=== PATIENT | female | born 1990 | race Caucasian/White ===

== ENCOUNTER 2017-02-03 15:36 | Emergency (ER) | payer OTHER ==
[2017-02-03] MEDS ORDERED: Ketorolac 30 MG/ML SDV IVPUSH ONE (16:52)
[2017-02-03] MEDS ORDERED: Sodium Chloride 0.9% 1,000 ML IV ONE (16:52)
[2017-02-03] MEDS ORDERED: Ondansetron 4 MG/2 ML SDV IVPUSH ONE (16:52)
[2017-02-03] MEDS ORDERED: LORazepam 2 MG/ML SDV IVPUSH ONE (17:43)
--- NOTE | 2017-02-03 18:26 | EDM.PDOC ---
ED HPI GENERAL MEDICAL PROBLEM - General Chief Complaint: Headache Stated Complaint: HEADACHE Time Seen by Provider: 02/03/17 16:51 Source of Information: Reports: Patient History Limitations: Reports: No Limitations - History of Present Illness INITIAL COMMENTS - FREE TEXT/NARRATIVE: HISTORY AND PHYSICAL: History of present illness: Patient is a 26-year-old female who presents to the emergency room with complaints of a tension type headache. States this has been going on for 2 days and has not been alleviated with Excedrin Migraine. Reports some muscular tension at the base of the skull and wraps around her head. Reports she has been having headaches every 2-3 weeks. He is normally resolve with Excedrin Migraine and rest. He has mild light and noise sensitivity. No nausea, vomiting , diarrhea, abdominal pain. Any recent head injury or trauma. Denies any change in vision. Last menstrual period was late December, denies any chance of . Review of systems: As per history of present illness and below otherwise all systems reviewed and negative. Past medical history: As per history of present illness and as reviewed below otherwise noncontributory. Surgical history: As per history of present illness and as reviewed below otherwise noncontributory. Social history: No reported history of drug or alcohol abuse. Family history: As per history of present illness and as reviewed below otherwise noncontributory. Physical exam: Gen.: Well-developed and well-nourished 26-year-old female. Appears nontoxic and in no acute distress. Alert and oriented. HEENT: Atraumatic, normocephalic, pupils reactive, negative for conjunctival pallor or scleral icterus, mucous membranes moist, throat clear, neck supple, nontender, trachea midline. Lungs: Clear to auscultation, breath sounds equal bilaterally, chest nontender. Heart: S1S2, regular, negative for clicks, rubs, or JVD. Abdomen: Soft, nondistended, nontender. Negative for masses or hepatosplenomegaly. Negative for costovertebral tenderness. Pelvis: Stable nontender. Genitourinary: Deferred. Rectal: Deferred. Extremities: Atraumatic, negative for cords or calf pain. Neurovascular unremarkable. Neuro: Awake, alert, oriented. Cranial nerves II through XII unremarkable. Cerebellum unremarkable. Motor and sensory unremarkable throughout. Exam nonfocal. Diagnostics: [] Therapeutics: IV fluid, Zofran, Toradol, Ativan Impression: Migraine Plan: 1. Please take the rest of the day to rest. The medication you were given may make you drowsy sitting do not drive for the rest of the evening. 2. Keep a headache diary over the next couple weeks and I would like you to discuss possible maintenance/preventative headache treatment options with your primary care provider as you do state you've been having them every couple weeks. 3. Return to the ED as needed and as discussed. Definitive disposition and diagnosis as appropriate pending reevaluation and review of above. headache Pain Score (Numeric/FACES): 10 - Related Data Allergies Allergy/AdvReac Type Severity Reaction Status Date / Time No Known Allergies Allergy Verified 02/03/17 16:06 Home Meds: Home Meds Control 02/03/17 [History] Past Medical History Neurological History: Reports: Migraines - Infectious Disease History Infectious Disease History: Reports: Chicken Pox - Past Surgical History GI Surgical History: Reports: Appendectomy Social & Family History - Family History Family Medical History: Noncontributory - Tobacco Use Smoking Status *Q: Never Smoker - Recreational Drug Use Recreational Drug Use: No ED ROS GENERAL - Review of Systems Review Of Systems: ROS reveals no pertinent complaints other than HPI. - Physical Exam Exam: See Below (See dictation) Course - Vital Signs Last Recorded V/S: Last Vital Signs Temp 36.6 C 02/03/17 16:06 Pulse 89 02/03/17 16:06 Resp 18 02/03/17 16:06 BP 130/83 02/03/17 16:06 Pulse Ox 96 02/03/17 16:06 - Orders/Labs/Meds Meds: Medications Discontinued Medications Generic Name Dose Route Start Last Admin Trade Name Bayron PRN Reason Stop Dose Admin Sodium Chloride 1,000 mls @ 999 mls/hr 02/03/17 16:52 02/03/17 17:17 Normal Saline IV 02/03/17 17:52 999 mls/hr STAT ONE Administration Ketorolac Tromethamine 30 mg 02/03/17 16:52 02/03/17 17:15 Toradol IVPUSH 02/03/17 16:53 30 mg ONETIME ONE Administration Lorazepam 0.5 mg 02/03/17 17:43 02/03/17 17:50 Ativan IVPUSH 02/03/17 17:44 0.5 mg ONETIME ONE Administration Ondansetron HCl 4 mg 02/03/17 16:52 02/03/17 17:15 Zofran IVPUSH 02/03/17 16:53 4 mg ONETIME ONE Administration Departure - Departure Time of Disposition: 18:25 Disposition: Home, Self-Care 01 Clinical Impression: Tension-type headache - Discharge Information Referrals: PCP,None [Primary Care Provider] - Additional Instructions: My general discharge The following information is given to patients seen in the emergency department who are being discharged to home. This information is to outline your options for follow-up care. We provide all patients seen in our emergency department with a follow-up referral. The need for follow-up, as well as the timing and circumstances, are variable depending upon the specifics of your emergency department visit. If you don't have a primary care physician on staff, we will provide you with a referral. We always advise you to contact your personal physician following an emergency department visit to inform them of the circumstance of the visit and for follow-up with them and/or the need for any referrals to a consulting specialist. The emergency department will also refer you to a specialist when appropriate. This referral assures that you have the opportunity for follow-up care with a specialist. All of these measure are taken in an effort to provide you with optimal care, which includes your follow-up. Under all circumstances we always encourage you to contact your private physician who remains a resource for coordinating your care. When calling for follow-up care, please make the office aware that this follow-up is from your recent emergency room visit. If for any reason you are refused follow-up, please contact the [facility] Emergency Department at and asked to speak to the emergency department charge nurse. [facility] [address] [place] [id number] 1. Please take the rest of the day to rest. The medication you were given may make you drowsy sitting do not drive for the rest of the evening. 2. Keep a headache diary over the next couple weeks and I would like you to discuss possible maintenance/preventative headache treatment options with your primary care provider as you do state you've been having them every couple weeks. 3. Return to the ED as needed and as discussed.
== END 2017-02-03 18:55 | disposition home or self-care (01) ==
LOC: MW.ED 15:36
DX: G44.209 Tension-type headache, unspecified, not intractable (principal); G43.909 Migraine, unspecified, not intractable, without status migrainosus
CPT/HCPCS: 96361; 96374; 96375; 99283; J1885; J2060; J2405; J7040; 99282

== ENCOUNTER 2019-03-09 10:27 | Day surgery (SDC) | payer OTHER ==
[~2019-03-09 10:27] MED LIST: Lactated Ringers 1,000 ML IV SCH
[2019-03-09] MEDS ORDERED: 50% Dextrose in Water 50 ML Syringe IVPUSH PRN (10:44)
[2019-03-09] MEDS ORDERED: Naloxone 0.4 MG/ML Syringe IVPUSH PRN (10:44)
[2019-03-09] MEDS ORDERED: Atropine 0.1 MG/ML 10 ML Syringe IVPUSH PRN ×2 (10:44)
[2019-03-09] MEDS ORDERED: fentaNYL 100 MCG/2 ML SDV IVPUSH PRN (10:44)
[2019-03-09] MEDS ORDERED: EPINEPHrine 1:10,000 1 MG/10 ML Syringe IVPUSH PRN (10:44)
[2019-03-09] MEDS ORDERED: Albuterol 0.083% 2.5 MG/3 ML Neb Soln NEB PRN (10:44)
[2019-03-09] MEDS ORDERED: fentaNYL 100 MCG/2 ML SDV ONE (11:15)
[2019-03-09] MEDS ORDERED: Midazolam 1 MG/ML 2 ML SDV ONE (11:15)
[2019-03-09] MEDS ORDERED: Propofol 200 MG/20 ML SDV ONE (11:15)
[2019-03-09] MEDS ORDERED: Doxycycline 100 MG Cap PO ONE (11:30)
--- NOTE | 2019-03-09 11:34 | PCM.PREANE ---
Preanesthetic Assessment - Anesthesia/Transfusion/Family Hx Anesthesia History: Prior Anesthesia Without Reaction Family History of Anesthesia Reaction: No Transfusion History: No Prior Transfusion(s) Intubation History: Unknown - Review of Systems General: No Symptoms Pulmonary: No Symptoms Cardiovascular: No Symptoms Gastrointestinal: No Symptoms Neurological: No Symptoms Other: Reports: None - Physical Assessment Height: 5 ft 6 in Weight: 86.636 kg ASA Class: 2 Mental Status: Alert & Oriented x3 Airway Class: Mallampati = 2 Dentition: Reports: Normal Dentition Thyro-Mental Finger Breadths: 3 Mouth Opening Finger Breadths: 3 ROM/Head Extension: Full Lungs: Clear to Auscultation, Normal Respiratory Effort Cardiovascular: Regular Rate, Regular Rhythm - Lab Values: Laboratory Last Values WBC 8.47 K/uL (4.0-11.0) 03/09/19 11:03 RBC 4.40 M/uL (4.30-5.90) 03/09/19 11:03 Hgb 12.9 g/dL (12.0-16.0) 03/09/19 11:03 Hct 38.5 % (36.0-46.0) 03/09/19 11:03 MCV 87.5 fL (80.0-98.0) 03/09/19 11:03 MCH 29.3 pg (27.0-32.0) 03/09/19 11:03 MCHC 33.5 g/dL (31.0-37.0) 03/09/19 11:03 RDW Std Deviation 44.1 fl (28.0-62.0) 03/09/19 11:03 RDW Coeff of Jovanny 14 % (11.0-15.0) 03/09/19 11:03 Plt Count 231 K/uL (150-400) 03/09/19 11:03 MPV 10.30 fL (7.40-12.00) 03/09/19 11:03 Nucleated RBC % 0.0 /100WBC 03/09/19 11:03 Nucleated RBCs # 0 K/uL 03/09/19 11:03 - Allergies Allergies/Adverse Reactions: Allergies Allergy/AdvReac Type Severity Reaction Status Date / Time povidone-iodine Allergy Mild Rash Verified 03/06/19 10:59 [From Betadine] soap [From Betadine] Allergy Mild Rash Verified 03/06/19 10:59 - Blood Blood Available: No - Anesthesia Plan Pre-Op Medication Ordered: None - Acknowledgements Anesthesia Type Planned: General Anesthesia Pt an Appropriate Candidate for the Planned Anesthesia: Yes Alternatives and Risks of Anesthesia Discussed w Pt/Guardian: Yes Pt/Guardian Understands and Agrees with Anesthesia Plan: Yes PreAnesthesia Questionnaire HEENT History: Reports: Other (See Below) Other HEENT History: wears glasses/contacts, has upper and lower permanent dental retainers Gastrointestinal History: Reports: None MANAGER INTEGRATION History: Reports: Spontaneous Neurological History: Reports: Concussion, Migraines, Seizure Other Neuro History: hx of 1 seizure 3 years ago from stress (after PAP smear) Psychiatric History: Reports: Other (See Below) Other Psychiatric History: anxiety over current procedures Endocrine/Metabolic History: Reports: Obesity/BMI 30+ (BMI 30.8) - Infectious Disease History Infectious Disease History: Reports: Chicken Pox - Past Surgical History Head Surgeries/Procedures: Reports: None GI Surgical History: Reports: Appendectomy Female Surgical History: Reports: Other (See Below) Other Female Surgeries/Procedures: uterine septum resection x3 - 03/04, and 07/04 - SUBSTANCE USE Smoking Status *Q: Never Smoker Recreational Drug Use History: No - HOME MEDS Home Medications: Home Meds . [No Known Home Meds] 03/06/19 [History] - CURRENT (IN HOUSE) MEDS Current Meds: Current Medications Albuterol (Proventil Neb Soln) 2.5 mg NEB ONETIME PRN PRN Reason: Wheezing Atropine Sulfate (Atropine 0.1 Mg/Ml) 0.5 mg IVPUSH ASDIRECTED PRN PRN Reason: Hypo-perfusion Stop: 03/09/19 14:44 Atropine Sulfate (Atropine 0.1 Mg/Ml) 1 mg IVPUSH ASDIRECTED PRN PRN Reason: Hypo-Perfusion Dextrose/Water (Dextrose 50% In Water) 50 ml IVPUSH ASDIRECTED PRN PRN Reason: Hypoglycemia Epinephrine HCl (Epinephrine 1:10,000) 1 mg IVPUSH ASDIRECTED PRN PRN Reason: ACLS Guidelines Fentanyl (Sublimaze) 50 mcg IVPUSH Q5M PRN PRN Reason: Pain Lactated Ringer's (Ringers, Lactated) 1,000 mls @ 125 mls/hr IV ASDIRECTED CHRISSY Naloxone HCl (Narcan) 0.1 mg IVPUSH ASDIRECTED PRN PRN Reason: Respiratory Depression Discontinued Medications Doxycycline Hyclate (Vibramycin) 200 mg PO ONETIME ONE Stop: 03/09/19 11:31 Fentanyl (Sublimaze) Confirm Administered Dose 100 mcg .ROUTE .STK-MED ONE Stop: 03/09/19 11:16 Midazolam HCl (Versed 1 Mg/Ml) Confirm Administered Dose 2 mg .ROUTE .STK-MED ONE Stop: 03/09/19 11:16 Propofol (Diprivan 20 Ml) Confirm Administered Dose 200 mg .ROUTE .STK-MED ONE Stop: 03/09/19 11:16
[2019-03-09] MEDS ORDERED: Ondansetron 4 MG/2 ML SDV IVPUSH ONE (12:23)
[2019-03-09] MEDS ORDERED: Ketorolac 30 MG/ML SDV IVPUSH ONE (14:42)
--- NOTE | 2019-03-09 14:54 | PCM.OPNOTE ---
- General Post-Op/Procedure Note Date of Surgery/Procedure: 03/09/19 Operative Procedure(s): Suction dilation & curettage Findings: 8-week sized uterus Pre Op Diagnosis: 28yo at 9 weeks with missed Post-Op Diagnosis: 28yo at 9 weeks with missed Anesthesia Technique: General ET Tube Primary Surgeon: Mely Willoughby Pathology: Products of conception, sent for genetic testing to [facility], Intraop: 1,000 EBL in mLs: 300 Complications: None Condition: Good
--- NOTE | 2019-03-09 15:18 | PCM.POSTAN ---
POST ANESTHESIA ASSESSMENT - MENTAL STATUS Mental Status: Alert, Oriented - VITAL SIGNS Vital Signs: Last Vital Signs Temp 36.3 C 03/09/19 14:34 Pulse 92 03/09/19 14:59 Resp 14 03/09/19 14:59 BP 118/58 L 03/09/19 14:54 Pulse Ox 97 03/09/19 14:59 - RESPIRATORY Respiratory Status: Respiratory Rate WNL, Airway Patent, O2 Saturation Stable - CARDIOVASCULAR CV Status: Pulse Rate WNL, Blood Pressure Stable - GASTROINTESTINAL GI Status: No Symptoms - PAIN Pain Score: 2 - POST OP HYDRATION Hydration Status: Adequate & Stable - OBSERVATIONS Free Text/Narrative:: No anesthesia problems
--- NOTE | 2019-03-09 17:26 | PCM48HPAN ---
Post Anesthesia Note - EVALUATION WITHIN 48HRS OF ANESTHETIC Vital Signs in Normal Range: Yes Patient Participated in Evaluation: Yes Respiratory Function Stable: Yes Airway Patent: Yes Cardiovascular Function Stable: Yes Hydration Status Stable: Yes Pain Control Satisfactory: Yes Nausea and Vomiting Control Satisfactory: Yes Mental Status Recovered: Yes Vital Signs: Last Vital Signs Temp 36.3 C 03/09/19 16:02 Pulse 80 03/09/19 16:02 Resp 16 03/09/19 16:02 BP 116/54 L 03/09/19 16:02 Pulse Ox 97 03/09/19 16:02 - COMMENTS/OBSERVATIONS Free Text/Narrative:: no anesthesia problems
--- NOTE | 2019-03-09 20:44 | OR ---
SURGEON: Mely Willoughby MD DATE OF PROCEDURE: 03/09/2019 PREOPERATIVE DIAGNOSIS: A 28-year-old, G1, P0, with missed at 9 weeks' gestation. POSTOPERATIVE DIAGNOSIS: A 28-year-old, G1, P0, with missed at 9 weeks' gestation. PROCEDURE: Suction dilation and curettage. PRIMARY SURGEON: Mely Willoughby MD. ANESTHESIA: General endotracheal. COMPLICATIONS: None. ESTIMATED BLOOD LOSS: 300 mL. IV FLUIDS: 1 L of LR. URINE OUTPUT: Bladder drained prior to procedure. SPECIMEN: Products of conception sent to [facility] for genetic testing per the sales agent trading stamps and infertility specialist. FINDINGS: Eight-week size anteverted uterus, moderate amounts of products of conception. DESCRIPTION OF PROCEDURE: The patient was taken to the operating room where general anesthesia was obtained. She was then placed in the dorsal lithotomy position with legs in Viktor type stirrups. An exam under anesthesia revealed an 8-week size anteverted uterus with the cervix closed. The patient was prepared and draped in normal sterile fashion. A Graves speculum was inserted in the vagina. An Allis clamp was used to grasp the anterior lip of the cervix. The uterus was carefully sounded to 8 cm. The cervix was then dilated with Hegar dilators to a size 9. An 8 mm suction curette was advanced to the uterine fundus. Suction was then started. The products of conception were evacuated with the curette rotating on the outward movement. A gentle sharp curettage was then performed with a medium curette. This was repeated two times to clear the uterus. The Allis clamp was removed from the cervix and hemostasis was noted. The speculum was removed from the vagina. The patient tolerated the procedure well. The patient was taken to recovery room in stable condition. [id number] / MODL /[id number]
== END 2019-03-09 16:35 | disposition home or self-care (01) ==
LOC: MW.SDS 10:27
PROVIDERS: ATTEND Obstetrics & Gynecology
DX: O02.1 Missed abortion (principal)
CPT/HCPCS: 36415; 59820; 85027; 85460; 86850; 86900; 86901; A9270; J1885; J2250; J2405; J2704; J2792; J3010; J7120

== ENCOUNTER 2019-07-11 19:24 | Emergency (ER) | payer OTHER ==
[2019-07-11] MEDS ORDERED: Sodium Chloride 0.9% 1,000 ML IV ONE (20:09)
[2019-07-11] MEDS ORDERED: Ondansetron 4 MG/2 ML SDV IVPUSH ONE (20:09)
--- NOTE | 2019-07-11 20:15 | EDM.PDOC ---
ED HPI GENERAL MEDICAL PROBLEM - General Chief Complaint: Gastrointestinal Problem Stated Complaint: VOMITING AND PAIN IN NECK Time Seen by Provider: 07/11/19 20:06 Source of Information: Reports: Patient History Limitations: Reports: No Limitations - History of Present Illness INITIAL COMMENTS - FREE TEXT/NARRATIVE: HISTORY AND PHYSICAL: History of present illness: Patient is a 28-year-old female who presents to the emergency room with complaints of nausea. She states over the past few days she has had nausea and has been scared to eat, as she does not want to vomit. She states that smelling food makes her nauseated. She and her have been trying to get for the past year and had been doing hormone therapy. In January she had a D&C, since that time has stopped "trying". She did have a menstrual period (1st one since her D&C) she was very heavy approximately 2 weeks ago. She also has some sharp pain in her left shoulder which is causing a mild headache. She has had this pain intermittently on and off for years. Usually Tylenol and/or ibuprofen alleviate her discomfort. She denies any injury, trauma, numbness, tingling or weakness. Patient denies any fever, chills, headache, pain/stiffness, change in vision, syncope or near syncope. Denies any chest pain, back pain, shortness of breath or cough. Denies any abdominal pain, vomiting, diarrhea, constipation or dysuria. Has not noted any blood in urine or stool. Patient has been eating and drinking appropriately. Review of systems: As per history of present illness and below otherwise all systems reviewed and negative. Past medical history: As per history of present illness and as reviewed below otherwise noncontributory. Surgical history: As per history of present illness and as reviewed below otherwise noncontributory. Social history: See social history for further information Family history: As per history of present illness and as reviewed below otherwise noncontributory. Physical exam: General: Well-developed and well-nourished 28-year-old female. Alert and oriented. Nontoxic-appearing and in no acute distress. HEENT: Atraumatic, normocephalic, pupils equal and reactive bilaterally, negative for conjunctival pallor or scleral icterus, mucous membranes moist, TMs normal bilaterally, throat clear, neck supple, nontender, trachea midline. No drooling or trismus noted. No meningeal signs. No hot potato voice noted. Lungs: Clear to auscultation, breath sounds equal bilaterally, chest nontender. Heart: S1S2, regular rate and rhythm without overt murmur Abdomen: Soft, nondistended, nontender. Negative for masses or hepatosplenomegaly. Negative for costovertebral tenderness. Skin: Intact, warm, dry. No lesions or rashes noted. C-spine/Back: No pinpoint vertebral tenderness upon palpation. No crepitus, step -offs or obvious deformities. Patient is ambulatory into the emergency room without difficulty or deficit. Able to rock back on heels and walk on toes. Muscular tension noted to the left trapezius. Denies any urinary or fecal incontinence. Denies any numbness, tingling or saddle paresthesia. Extremities: Atraumatic, moves all extremities per self without difficulty or deficits, negative for cords or calf pain. Neurovascular unremarkable. Neuro: Awake, alert, oriented. Cranial nerves II through XII unremarkable. Cerebellum unremarkable. Motor and sensory unremarkable throughout. Exam nonfocal. Notes: No nuchal ridgitiy; appears to be ill or in nature. Patient agrees stating that that is what it has been in the past. Does not feel the Tylenol and ibuprofen have been helping. Does have improvement after medications. Does have a slight leukocytosis. She does not have any abdominal pain, urinary symptoms, change in bowel. I did initially offer/request to do a urine, she declines stating that she would prefer to go home. We discussed following up with her primary care provider. Medication and supportive care measures were reviewed and discussed. Voices understanding and is agreeable to plan of care. Denies any further questions or concerns at this time. Diagnostics: CBC, CMP, serum hCG Therapeutics: Fluid, Zofran Prescription: Zofran, Flexeril Impression: Nausea Muscle Strain Plan: 1. Increase your oral fluids to prevent dehydration. You can use the Zofran as needed for nausea management. 2. Tylenol and/or ibuprofen for pain. You can apply gentle heat to the area as well. Use the Flexeril 1 tab 3 times daily as needed for muscle spasm. This medication may cause some drowsiness so do not take it while driving or needing to be functioning outside of the house. 3. Follow-up with your primary care provider as we discussed. Return to the ED as needed and as discussed. Definitive disposition and diagnosis as appropriate pending reevaluation and review of above. neck Pain Score (Numeric/FACES): 7 - Related Data Allergies Allergy/AdvReac Type Severity Reaction Status Date / Time povidone-iodine Allergy Mild Rash Verified 07/11/19 20:32 [From Betadine] soap [From Betadine] Allergy Mild Rash Verified 07/11/19 20:32 Home Meds: Home Meds Cyclobenzaprine [Flexeril] 10 mg PO TID PRN #21 tab 07/11/19 [Rx] Ondansetron [Zofran ODT] 4 mg PO Q6H PRN #8 tab.dis 07/11/19 [Rx] Past Medical History HEENT History: Reports: Other (See Below) Other HEENT History: wears glasses/contacts, has upper and lower permanent dental retainers Gastrointestinal History: Reports: None 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 Neurological History: Reports: Concussion, Migraines, Seizure Other Neuro History: hx of 1 seizure 3 years ago from stress (after PAP smear) Psychiatric History: Reports: Other (See Below) Other Psychiatric History: anxiety over current procedures Endocrine/Metabolic History: Reports: Obesity/BMI 30+ - Infectious Disease History Infectious Disease History: Reports: Chicken Pox - Past Surgical History Head Surgeries/Procedures: Reports: None GI Surgical History: Reports: Appendectomy Female Surgical History: Reports: Other (See Below) Other Female Surgeries/Procedures: uterine septum resection x3 - 03/04, 02 and 07/04 Social & Family History - Family History Family Medical History: Noncontributory ED ROS GENERAL - Review of Systems Review Of Systems: Comprehensive ROS is negative, except as noted in HPI. ED EXAM, GI/ABD - Physical Exam Exam: See Below (See dictation) Course - Vital Signs Last Recorded V/S: Last Vital Signs Temp 97.6 F 07/11/19 20:32 Pulse 76 07/11/19 20:32 Resp 18 07/11/19 20:32 BP 121/72 07/11/19 20:32 Pulse Ox 97 07/11/19 20:32 - Orders/Labs/Meds Labs: Laboratory Tests 07/11/19 07/11/19 07/11/19 Range/Units 20:15 20:15 20:15 WBC 11.64 H (4.0-11.0) K/uL RBC 4.89 (4.30-5.90) M/uL Hgb 14.2 (12.0-16.0) g/dL Hct 42.5 (36.0-46.0) % MCV 86.9 (80.0-98.0) fL MCH 29.0 (27.0-32.0) pg MCHC 33.4 (31.0-37.0) g/dL RDW Std Deviation 43.3 (28.0-62.0) fl RDW Coeff of Jovanny 14 (11.0-15.0) % Plt Count 245 (150-400) K/uL MPV 10.40 (7.40-12.00) fL Neut % (Auto) 85.3 H (48.0-80.0) % Lymph % (Auto) 10.5 L (16.0-40.0) % [place] % (Auto) 3.9 (0.0-15.0) % Eos % (Auto) 0.1 (0.0-7.0) % Baso % (Auto) 0.2 (0.0-1.5) % Neut # (Auto) 9.9 H (1.4-5.7) K/uL Lymph # (Auto) 1.2 (0.6-2.4) K/uL [place] # (Auto) 0.5 (0.0-0.8) K/uL Eos # (Auto) 0.0 (0.0-0.7) K/uL Baso # (Auto) 0.0 (0.0-0.1) K/uL Nucleated RBC % 0.0 /100WBC Nucleated RBCs # 0 K/uL Sodium 139 (136-145) mmol/L Potassium 3.9 (3.5-5.1) mmol/L Chloride 103 (98-107) mmol/L Carbon Dioxide 24.3 (21.0-32.0) mmol/L BUN 10 (7.0-18.0) mg/dL Creatinine 0.7 (0.6-1.0) mg/dL Est Cr Clr Drug Dosing 114.01 mL/min Estimated GFR (MDRD) > 60.0 ml/min Glucose 102 (74-106) mg/dL Calcium 8.8 (8.5-10.1) mg/dL Total Bilirubin 0.5 (0.2-1.0) mg/dL AST 15 (15-37) IU/L ALT 21 (14-63) IU/L Alkaline Phosphatase 65 (46-116) U/L Total Protein 7.1 (6.4-8.2) g/dL Albumin 4.1 (3.4-5.0) g/dL Globulin 3.0 (2.6-4.0) g/dL Albumin/Globulin Ratio 1.4 (0.9-1.6) HCG, Qual NEGATIVE (NEG) Meds: Medications Discontinued Medications Generic Name Dose Route Start Last Admin Trade Name Freq PRN Reason Stop Dose Admin Cyclobenzaprine HCl 10 mg 07/11/19 20:56 Flexeril PO 07/11/19 20:57 ONETIME ONE Sodium Chloride 1,000 mls @ 999 mls/hr 07/11/19 20:09 07/11/19 20:27 Normal Saline IV 07/11/19 21:09 999 mls/hr STAT ONE Administration Ketorolac Tromethamine 30 mg 07/11/19 20:56 Toradol IVPUSH 07/11/19 20:57 ONETIME ONE Ondansetron HCl 4 mg 07/11/19 20:09 07/11/19 20:26 Zofran IVPUSH 07/11/19 20:10 4 mg ONETIME ONE Administration Departure - Departure Time of Disposition: 21:32 Disposition: Home, Self-Care 01 Clinical Impression: Nausea, Muscle strain - Discharge Information Prescriptions: Cyclobenzaprine [Flexeril] 10 mg PO TID PRN #21 tab PRN Reason: Muscle Spasm Ondansetron [Zofran ODT] 4 mg PO Q6H PRN #8 tab.dis PRN Reason: Nausea Instructions: Nausea, Adult, [id number] Referrals: New Tee MD [Primary Care Provider] - Forms: ED Department Discharge Additional Instructions: The following information is given to patients seen in the emergency department who are being discharged to home. This information is to outline your options for follow-up care. We provide all patients seen in our emergency department with a follow-up referral. The need for follow-up, as well as the timing and circumstances, are variable depending upon the specifics of your emergency department visit. If you don't have a primary care physician on staff, we will provide you with a referral. We always advise you to contact your personal physician following an emergency department visit to inform them of the circumstance of the visit and for follow-up with them and/or the need for any referrals to a consulting specialist. The emergency department will also refer you to a specialist when appropriate. This referral assures that you have the opportunity for follow-up care with a specialist. All of these measure are taken in an effort to provide you with optimal care, which includes your follow-up. Under all circumstances we always encourage you to contact your private physician who remains a resource for coordinating your care. When calling for follow-up care, please make the office aware that this follow-up is from your recent emergency room visit. If for any reason you are refused follow-up, please contact the [facility] Emergency Department at and asked to speak to the emergency department charge nurse. [facility] [address] [place] [id number] [place] [address] 1. Increase your oral fluids to prevent dehydration. You can use the Zofran as needed for nausea management. 2. Tylenol and/or ibuprofen for pain. You can apply gentle heat to the area as well. Use the Flexeril 1 tab 3 times daily as needed for muscle spasm. This medication may cause some drowsiness so do not take it while driving or needing to be functioning outside of the house. 3. Follow-up with your primary care provider as we discussed. Return to the ED as needed and as discussed. Sepsis Event Note - Focused Exam Vital Signs: Vital Signs Temp Pulse Resp BP Pulse Ox 07/11/19 20:32 97.6 F 76 18 121/72 97 Date Exam was Performed: 07/11/19 Time Exam was Performed: 21:35
[2019-07-11 20:50] LABS: BLOOD UREA NITROGEN,BUN 10 mg/dL (7.0-18.0); CARBON DIOXIDE,CO2 24.3 mmol/L (21.0-32.0); CHLORIDE,CL 103 mmol/L (98-107); GLUCOSE RANDOM 102 mg/dL (74-106); POTASSIUM,K 3.9 mmol/L (3.5-5.1); SODIUM,NA 139 mmol/L (136-145)
[2019-07-11] MEDS ORDERED: Cyclobenzaprine 10 MG Tab PO ONE (20:56)
[2019-07-11] MEDS ORDERED: Ketorolac 30 MG/ML SDV IVPUSH ONE (20:56)
== END 2019-07-11 21:56 | disposition home or self-care (01) ==
LOC: MW.ED 19:24
DX: S46.812A Strain of other muscles, fascia and tendons at shoulder and upper arm level, left arm, initial encounter (principal); R11.0 Nausea; E66.9 Obesity, unspecified; Z68.31 Body mass index [BMI] 31.0-31.9, adult; Z88.8 Allergy status to other drugs, medicaments and biological substances; Z91.048 Other nonmedicinal substance allergy status; Z90.49 Acquired absence of other specified parts of digestive tract; X58.XXXA Exposure to other specified factors, initial encounter
CPT/HCPCS: 36415; 80053; 84703; 85025; 96374; 96375; 99283; A9270; J1885; J2405; J7030

== ENCOUNTER 2019-08-17 22:33 | Emergency (ER) | payer OTHER ==
[2019-08-17] MEDS ORDERED: Sodium Chloride 0.9% 10 ML SDV IV PRN (22:51)
[2019-08-17] MEDS ORDERED: Sodium Chloride 0.9% 10 ML Syringe FLUSH PRN (22:51)
[2019-08-17] MEDS ORDERED: Ondansetron 4 MG/2 ML SDV IVPUSH ONE (22:51)
[2019-08-17] MEDS ORDERED: Lactated Ringers 1,000 ML IV ONE (22:51)
[2019-08-17] MEDS ORDERED: Acetaminophen 500 MG Tab PO ONE (22:51)
[2019-08-17] MEDS ORDERED: Sodium Chloride 0.9% 2.5 ML Syringe FLUSH PRN (22:51)
--- NOTE | 2019-08-17 23:12 | EDM.PDOC ---
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 Reports a 2-day history of persistent nausea and nonbloody emesis along with left-sided neck pain. Patient has not had prior issues with hyperemesis gravidarum during this . She took pyridoxine prior to arrival around 9 PM without relief. She denies any back pain, abdominal pain, vaginal bleeding, headache, or visual disturbance. No history of fever, recent international travel, or sick contacts. headache and neck pain Pain Score (Numeric/FACES): 9 - Related Data Allergies Allergy/AdvReac Type Severity Reaction Status Date / Time povidone-iodine Allergy Mild Rash Verified 08/17/19 22:48 [From Betadine] soap [From Betadine] Allergy Mild Rash Verified 08/17/19 22:48 Home Meds: Home Meds Pnv No.95/Ferrous Fum/Folic AC [ Tablet] 1 tab PO DAILY 08/17/19 [ History] Doxylamine Succinate [Nighttime Sleep-Aid] 25 mg PO Q8H PRN #20 tablet 08/18/19 [Rx] Ondansetron [Zofran] 4 mg PO Q8H PRN #15 tab 08/18/19 [Rx] Past Medical History HEENT History: Reports: Other (See Below) Other HEENT History: wears glasses/contacts, has upper and lower permanent dental retainers Gastrointestinal History: Reports: None 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 Neurological History: Reports: Concussion, Migraines, Seizure Other Neuro History: hx of 1 seizure 3 years ago from stress (after PAP smear) Psychiatric History: Reports: Other (See Below) Other Psychiatric History: anxiety over current procedures Endocrine/Metabolic History: Reports: Obesity/BMI 30+ - Infectious Disease History Infectious Disease History: Reports: Chicken Pox - Past Surgical History Head Surgeries/Procedures: Reports: None GI Surgical History: Reports: Appendectomy Female Surgical History: Reports: Other (See Below) Other Female Surgeries/Procedures: uterine septum resection x3 - 03/04, 02 and 07/04 Social & Family History - Family History Family Medical History: Noncontributory - Tobacco Use Smoking Status *Q: Never Smoker - Caffeine Use Caffeine Use: Reports: None - Recreational Drug Use Recreational Drug Use: No ED ROS GENERAL - Review of Systems Review Of Systems: See Below Constitutional: Denies: Fever HEENT: Reports: No Symptoms Respiratory: Denies: Shortness of Breath Cardiovascular: Denies: Chest Pain Endocrine: Reports: No Symptoms GI/Abdominal: Reports: Nausea, Vomiting. Denies: Abdominal Pain, Black Stool, Bloody Stool, Diarrhea, Hematemesis, Hematochezia, Melena, Mucous in Stool : Reports: Other (Denies vaginal bleeding or discharge). Denies: Discharge, Dysuria, Flank Pain, Frequency, Hematuria, Pain, Urgency Musculoskeletal: Reports: Neck Pain (Left lateral neck pain). Denies: Back Pain Skin: Reports: No Symptoms Neurological: Denies: Headache Psychiatric: Reports: No Symptoms Hematologic/Lymphatic: Reports: No Symptoms Immunologic: Reports: No Symptoms ED EXAM - Physical Exam Exam: See Below Text/Narrative:: Vital signs reviewed. Nursing notes reviewed. Constitutional: Awake, alert, non-distressed. Head: Normocephalic, atraumatic. Eyes: EOMI, conjunctiva normal, no discharge, no scleral icterus. PERRL at 3 mm bilaterally. Ears, Nose, Throat: External ears and ears normal, moist oral mucosa. Neck is supple with full range of motion. Cardiovascular: 2+ radial pulse, capillary refill less than 2 seconds. RRR, no R/M/G Pulmonary: normal work of breathing, no accessory muscle use. CTA BL Abdomen/GI: Soft, nontender, nondistended, no guarding or rigidity, no masses. Musculoskeletal: No deformities. Integumentary: Appropriate color for ethnicity, warm, dry, no pallor or jaundice , no rash. Neurologic: Alert, answering questions appropriately, normal speech, no facial droop, moving all extremities well. CN II through XII intact. 5/5 strength to all extremity muscle groups. No pronator drift. Normal [id number] and [id number] bilaterally. Psychiatric: Appropriate mood and affect, normal thought process. Course - Vital Signs Text/Narrative:: Patient hemodynamically stable, afebrile, well-appearing, looks nontoxic. Differential diagnosis includes but is not limited to: Hyperemesis gravidarum, UTI, pyelonephritis, electrolyte disturbance, gastritis, gastroenteritis, bowel obstruction, etc. 2315: CBC shows mild leukocytosis 11.39. 2335: Metabolic panel shows mild hypokalemia and normal renal function and carbon dioxide, looks reassuring. 2343: Feeling better after Zofran. Passed p.o. challenge with fluids. Wants to try a lidocaine patch for her neck pain. 0012: Feeling better and interested in being discharged home. Serial abdominal examinations are unchanged, abdomen remains soft and nontender. Will plan for prescriptions for doxylamine and a short course of Zofran. Plan: Patient is stable to discharge home with outpatient primary care follow- up. Strict emergency department return precautions were provided, patient indicated understanding. All questions were answered prior to departure. Discharged in good condition. Last Recorded V/S: Last Vital Signs Temp 36.6 C 08/17/19 22:40 Pulse 81 08/17/19 23:46 Resp 18 08/17/19 23:26 BP 101/62 08/17/19 23:46 Pulse Ox 99 08/17/19 23:46 - Orders/Labs/Meds Orders: Active Orders 24 hr Category Date Time Status Sodium Chloride 0.9% [Normal Saline] Med 08/17/19 22:51 Active 10 ml IV ASDIRECTED PRN Sodium Chloride 0.9% [Saline Flush] Med 08/17/19 22:51 Active 10 ml FLUSH ASDIRECTED PRN Sodium Chloride 0.9% [Saline Flush] Med 08/17/19 22:51 Active 2.5 ml FLUSH ASDIRECTED PRN Peripheral IV Insertion Adult [OM.PC] Stat Oth 08/17/19 22:51 Ordered Medication Orders Sodium Chloride (Saline Flush) 10 ml FLUSH ASDIRECTED PRN PRN Reason: Keep Vein Open Sodium Chloride (Saline Flush) 2.5 ml FLUSH ASDIRECTED PRN PRN Reason: Keep Vein Open Sodium Chloride (Normal Saline) 10 ml IV ASDIRECTED PRN PRN Reason: IV Use Labs: Laboratory Tests 08/17/19 08/17/19 Range/Units 23:00 23:00 WBC 11.39 H (4.0-11.0) K/uL RBC 4.47 (4.30-5.90) M/uL Hgb 13.0 (12.0-16.0) g/dL Hct 38.9 (36.0-46.0) % MCV 87.0 (80.0-98.0) fL MCH 29.1 (27.0-32.0) pg MCHC 33.4 (31.0-37.0) g/dL RDW Std Deviation 45.2 (28.0-62.0) fl RDW Coeff of Jovanny 14 (11.0-15.0) % Plt Count 265 (150-400) K/uL MPV 9.80 (7.40-12.00) fL Neut % (Auto) 80.0 (48.0-80.0) % Lymph % (Auto) 14.3 L (16.0-40.0) % [place] % (Auto) 5.1 (0.0-15.0) % Eos % (Auto) 0.4 (0.0-7.0) % Baso % (Auto) 0.2 (0.0-1.5) % Neut # (Auto) 9.1 H (1.4-5.7) K/uL Lymph # (Auto) 1.6 (0.6-2.4) K/uL [place] # (Auto) 0.6 (0.0-0.8) K/uL Eos # (Auto) 0.0 (0.0-0.7) K/uL Baso # (Auto) 0.0 (0.0-0.1) K/uL Nucleated RBC % 0.0 /100WBC Nucleated RBCs # 0 K/uL Sodium 139 (136-145) mmol/L Potassium 3.3 L (3.5-5.1) mmol/L Chloride 104 (98-107) mmol/L Carbon Dioxide 23.6 (21.0-32.0) mmol/L BUN 5 L (7.0-18.0) mg/dL Creatinine 0.7 (0.6-1.0) mg/dL Est Cr Clr Drug Dosing TNP Estimated GFR (MDRD) > 60.0 ml/min Glucose 110 H (74-106) mg/dL Calcium 8.6 (8.5-10.1) mg/dL Meds: Medications Generic Name Dose Route Start Last Admin Trade Name Bayron PRN Reason Stop Dose Admin Sodium Chloride 10 ml 08/17/19 22:51 Saline Flush FLUSH ASDIRECTED PRN Keep Vein Open Sodium Chloride 2.5 ml 08/17/19 22:51 Saline Flush FLUSH ASDIRECTED PRN Keep Vein Open Sodium Chloride 10 ml 08/17/19 22:51 Normal Saline IV ASDIRECTED PRN IV Use Discontinued Medications Generic Name Dose Route Start Last Admin Trade Name Bayron PRN Reason Stop Dose Admin Acetaminophen 1,000 mg 08/17/19 22:51 08/17/19 23:06 Tylenol Extra Strength PO 08/17/19 22:52 1,000 mg ONETIME ONE Administration Lactated Ringer's 1,000 mls @ 1,000 mls/hr 08/17/19 22:51 08/17/19 23:05 Ringers, Lactated IV 08/17/19 23:50 1,000 mls/hr .BOLUS ONE Administration Lidocaine 700 mg 08/17/19 23:43 08/17/19 23:50 Lidoderm 5% TOP 08/17/19 23:44 700 mg ONETIME ONE Administration Ondansetron HCl 4 mg 08/17/19 22:51 08/17/19 23:05 Zofran IVPUSH 08/17/19 22:52 4 mg ONETIME ONE Administration Departure - Departure Time of Disposition: 00:13 Disposition: Home, Self-Care 01 Condition: Good Clinical Impression: Nausea and vomiting during , Hypokalemia - Discharge Information *PRESCRIPTION DRUG MONITORING PROGRAM REVIEWED*: Not Applicable *COPY OF PRESCRIPTION DRUG MONITORING REPORT IN PATIENT LEONA: Not Applicable Instructions: Morning Sickness, [id number], Potassium Content of Foods Referrals: New Tee MD [Primary Care Provider] - 3 Days (For follow-up of symptoms) Forms: ED Department Discharge Additional Instructions: Thank you for choosing the [facility] emergency department in [place] for your medical needs today. It was a pleasure caring for you. You were seen in the emergency department for nausea and vomiting. Your labs only showed that your potassium level was slightly low, we discussed foods that you can eat to correct this. We prescribed some medications for your nausea and vomiting. Please follow-up with your primary doctor the next few days to ensure that you are doing better. Please return the emergency department immediately if your symptoms worsen or if you feel worse. The following information is given to patients seen in the emergency department who are being discharged. This information is to outline your options for follow -up care. We provide all patients seen in our emergency department with a follow -up referral. The need for follow-up, as well as the timing and circumstances, are variable depending upon the specifics of your emergency department visit. If you don't have a primary care physician on staff, we will provide you with a referral. We always advise you to contact your personal physician following an emergency department visit to inform them of the circumstance of the visit and for follow-up with them and/or the need for any referrals to a consulting specialist. The emergency department will also refer you to a specialist when appropriate. This referral assures that you have the opportunity for follow-up care with a specialist. All of these measure are taken in an effort to provide you with optimal care, which includes your follow-up. Under all circumstances we always encourage you to contact your private physician who remains a resource for coordinating your care. When calling for follow-up care, please make the office aware that this follow-up is from your recent emergency room visit. If for any reason you are refused follow-up, please contact the [facility] Emergency Department at and asked to speak to the emergency department charge nurse. If you do not have a primary care physician that is caring for you, you can contact these clinics below to set up an appointment to establish care: [facility] - Primary Care [address] [place] [id number] [facility] [address] [place] [id number] Sepsis Event Note - Evaluation Sepsis Screening Result: No Definite Risk - Focused Exam Vital Signs: Vital Signs Temp Pulse Resp BP Pulse Ox 06/01/20 23:46 81 101/62 99 08/17/19 23:26 76 18 100/55 L 100 08/17/19 22:40 36.6 C 100 18 131/83 96 Date Exam was Performed: 08/18/19 Time Exam was Performed: 00:12 - My Orders Last 24 Hours: My Active Orders 08/17/19 22:51 Sodium Chloride 0.9% [Normal Saline] 10 ml IV ASDIRECTED PRN Sodium Chloride 0.9% [Saline Flush] 10 ml FLUSH ASDIRECTED PRN Sodium Chloride 0.9% [Saline Flush] 2.5 ml FLUSH ASDIRECTED PRN Peripheral IV Insertion Adult [OM.PC] Stat - Assessment/Plan Last 24 Hours: My Active Orders 08/17/19 22:51 Sodium Chloride 0.9% [Normal Saline] 10 ml IV ASDIRECTED PRN Sodium Chloride 0.9% [Saline Flush] 10 ml FLUSH ASDIRECTED PRN Sodium Chloride 0.9% [Saline Flush] 2.5 ml FLUSH ASDIRECTED PRN Peripheral IV Insertion Adult [OM.PC] Stat
[2019-08-17 23:26] LABS: BLOOD UREA NITROGEN,BUN 5 mg/dL (7.0-18.0); CARBON DIOXIDE,CO2 23.6 mmol/L (21.0-32.0); CHLORIDE,CL 104 mmol/L (98-107); GLUCOSE RANDOM 110 mg/dL (74-106); POTASSIUM,K 3.3 mmol/L (3.5-5.1); SODIUM,NA 139 mmol/L (136-145)
[2019-08-17] MEDS ORDERED: Lidocaine 5% 700 MG Patch TOP ONE (23:43)
== END 2019-08-18 00:25 | disposition home or self-care (01) ==
LOC: MW.ED 22:33
DX: O21.9 Vomiting of pregnancy, unspecified (principal); O99.281 Endocrine, nutritional and metabolic diseases complicating pregnancy, first trimester; E87.6 Hypokalemia; O99.211 Obesity complicating pregnancy, first trimester; Z88.8 Allergy status to other drugs, medicaments and biological substances; Z79.899 Other long term (current) drug therapy; Z90.49 Acquired absence of other specified parts of digestive tract; Z3A.08 8 weeks gestation of pregnancy
CPT/HCPCS: 36415; 80048; 85025; 96361; 96374; 99284; A9270; J2405; J7120; 99282

== ENCOUNTER 2020-03-29 16:26 | Inpatient (IN) | payer OTHER ==
[2020-03-29] MEDS ORDERED: Misoprostol 25 MCG (1/4 of 100 MCG) Tab VAG PRN ×2 (17:18)
[2020-03-29] MEDS ORDERED: Terbutaline 1 MG/ML SDV SUBCUT PRN (17:18)
[2020-03-29] MEDS ORDERED: Lidocaine 1% 50 ML MDV INJECT PRN (17:21)
[2020-03-29] MEDS ORDERED: Methylergonovine 0.2 MG/1 ML Amp IM PRN (17:21)
[2020-03-29] MEDS ORDERED: Sodium Chloride 0.9% 10 ML SDV IV PRN (17:21)
[2020-03-29] MEDS ORDERED: Water For Irrigation,Sterile 1,000 ML Container IRR PRN (17:21)
[2020-03-29] MEDS ORDERED: Tranexamic Acid 1,000 MG in Sodium Chloride 0.9% 100 ML IV PRN (17:21)
[2020-03-29] MEDS ORDERED: Carboprost Tromethamine 250 MCG/1 ML Amp IM PRN (17:21)
[2020-03-29] MEDS ORDERED: Misoprostol 200 MCG Tab PO PRN (17:21)
[2020-03-29] MEDS ORDERED: Sodium Chloride 0.9% 10 ML Syringe FLUSH PRN (17:21)
[2020-03-29] MEDS ORDERED: Sodium Chloride 0.9% 2.5 ML Syringe FLUSH PRN (17:21)
[2020-03-29] MEDS: Lactated Ringers 1,000 ML IV SCH ×2 (17:30→22:41)
[2020-03-29] MEDS ORDERED: Oxytocin/0.9 % Sodium Chloride 30 UNIT/500 ML BAG IV SCH (17:30)
[2020-03-29] MEDS: Butorphanol 1 MG/ML SDV IVPUSH PRN ×2 (21:46→22:54)
--- NOTE | 2020-03-30 00:16 | PCM.PREANE ---
Preanesthetic Assessment - Anesthesia/Transfusion/Family Hx Anesthesia History: Prior Anesthesia Without Reaction Family History of Anesthesia Reaction: No Transfusion History: No Prior Transfusion(s) Intubation History: Unknown - Review of Systems General: No Symptoms Pulmonary: No Symptoms Cardiovascular: No Symptoms Gastrointestinal: No Symptoms Neurological: No Symptoms Other: Reports: None - Physical Assessment NPO Status Date: 03/30/20 NPO Status Time: 00:20 Vital Signs: 135/84, 80, 22, 98.8, 99% Height: 1.68 m Weight: 104.78 kg ASA Class: 2 Mental Status: Alert & Oriented x3 Airway Class: Mallampati = 3 Dentition: Reports: Normal Dentition Thyro-Mental Finger Breadths: 3 Mouth Opening Finger Breadths: 3 (small mouth) ROM/Head Extension: Full Lungs: Clear to Auscultation, Normal Respiratory Effort Cardiovascular: Regular Rate, Regular Rhythm - Lab Values: Laboratory Last Values WBC 9.43 K/uL (4.0-11.0) 03/29/20 17:06 RBC 4.41 M/uL (4.30-5.90) 03/29/20 17:06 Hgb 13.2 g/dL (12.0-16.0) 03/29/20 17:06 Hct 39.6 % (36.0-46.0) 03/29/20 17:06 MCV 89.8 fL (80.0-98.0) 03/29/20 17:06 MCH 29.9 pg (27.0-32.0) 03/29/20 17:06 MCHC 33.3 g/dL (31.0-37.0) 03/29/20 17:06 RDW Std Deviation 44.6 fl (28.0-62.0) 03/29/20 17:06 RDW Coeff of Jovanny 14 % (11.0-15.0) 03/29/20 17:06 Plt Count 147 K/uL (150-400) L 03/29/20 17:06 MPV 11.80 fL (7.40-12.00) 03/29/20 17:06 Nucleated RBC % 0.0 /100WBC 03/29/20 17:06 Nucleated RBCs # 0 K/uL 03/29/20 17:06 SARS-CoV-2 RNA ([place]) NEGATIVE (NEGATIVE) 03/29/20 17:10 Blood Type A NEGATIVE 03/29/20 17:06 Antibody Screen NEGATIVE 03/29/20 17:06 - Allergies Allergies/Adverse Reactions: Allergies Allergy/AdvReac Type Severity Reaction Status Date / Time povidone-iodine Allergy Mild Rash Verified 03/29/20 17:18 [From Betadine] soap [From Betadine] Allergy Mild Rash Verified 03/29/20 17:18 - Acknowledgements Anesthesia Type Planned: Epidural (The patient understands and accepts anesthetic risks and benefits of epidural anesthesia, including failed epidural requiring replacement. All questions answered. Consent signed. 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 Other OB/BYN History: D&C Musculoskeletal History: Reports: Other (See Below) (left sciatica.) Neurological History: Reports: Concussion, Migraines, Seizure Other Neuro History: hx of 1 seizure 3 years ago from stress (after PAP smear) Psychiatric History: Reports: Other (See Below) Other Psychiatric History: anxiety over current procedures Endocrine/Metabolic History: Reports: Obesity/BMI 30+ Hematologic History: Reports: None Immunologic History: Reports: None Oncologic (Cancer) History: Reports: None Dermatologic History: Reports: None - Infectious Disease History Infectious Disease History: Reports: Chicken Pox - Past Surgical History Head Surgeries/Procedures: Reports: None Respiratory Surgical History: Reports: None GI Surgical History: Reports: Appendectomy Female Surgical History: Reports: D&C, Other (See Below) Other Female Surgeries/Procedures: uterine septum resection x3 - 03/04, 02 and 07/04 Endocrine Surgical History: Reports: None Neurological Surgical History: Reports: None Musculoskeletal Surgical History: Reports: None Oncologic Surgical History: Reports: None Dermatological Surgical History: Reports: None - History Comment History Comment: procedure delayed due to RN assisting with another patient's delivery - SUBSTANCE USE Tobacco Use Status *Q: Never Tobacco User Tobacco Use Within Last Twelve Months: No Second Hand Smoke Exposure: No Recreational Drug Use History: No - HOME MEDS Home Medications: Home Meds Pnv No.95/Ferrous Fum/Folic AC [ Tablet] 1 tab PO DAILY 08/17/19 [History] Doxylamine Succinate [Nighttime Sleep-Aid] 25 mg PO Q8H PRN #20 tablet 08/18/19 [Rx] Ondansetron [Zofran] 4 mg PO Q8H PRN #15 tab 08/18/19 [Rx] - CURRENT (IN HOUSE) MEDS Current Meds: Current Medications Butorphanol Tartrate (Stadol) 1 mg IVPUSH Q1H PRN PRN Reason: Pain Last Admin: 03/29/20 22:54 Dose: 1 mg Documented by: Carboprost Tromethamine (Hemabate Ds) 250 mcg IM ASDIRECTED PRN PRN Reason: Post Hemorrhage Oxytocin/Sodium Chloride (Oxytocin 30 Unit/500 Ml-Ns) 30 unit in 500 mls @ 2 mls/hr IV TITRATE CHRISSY; Protocol Lactated Ringer's (Ringers, Lactated) 1,000 mls @ 150 mls/hr IV ASDIRECTED CHRISSY Last Admin: 03/29/20 22:41 Dose: 75 mls/hr Documented by: Tranexamic Acid 1,000 mg/ (Sodium Chloride) 110 mls @ 660 mls/hr IV ONETIME PRN PRN Reason: Bleeding Lidocaine HCl (Xylocaine 1%) 50 ml INJECT ONETIME PRN PRN Reason: Laceration repair Methylergonovine Maleate (Methergine) 0.2 mg IM ASDIRECTED PRN PRN Reason: Post Hemorrhage Misoprostol (Cytotec) 25 mcg VAG ONETIME PRN PRN Reason: Cervical Ripening Last Admin: 03/29/20 17:50 Dose: 25 mcg Documented by: Misoprostol (Cytotec) 25 mcg VAG Q4H PRN PRN Reason: Cervical Ripening Misoprostol (Cytotec) 200 mcg PO ONETIME PRN PRN Reason: Post Hemorrhage Sodium Chloride (Saline Flush) 10 ml FLUSH ASDIRECTED PRN PRN Reason: Keep Vein Open Sodium Chloride (Saline Flush) 2.5 ml FLUSH ASDIRECTED PRN PRN Reason: Keep Vein Open Sodium Chloride (Normal Saline) 10 ml IV ASDIRECTED PRN PRN Reason: IV Use Sterile Water (Sterile Water For Irrigation) 1,000 ml IRR ASDIRECTED PRN PRN Reason: delivery Terbutaline Sulfate (Brethine) 0.25 mg SUBCUT ASDIRECTED PRN PRN Reason: Tacysystole
[2020-03-30] MEDS ORDERED: Ropivacaine HCl/PF 100 ML ONE (00:28)
[2020-03-30] MEDS: Lactated Ringers 1,000 ML IV SCH ×4 (01:04→13:55)
--- NOTE | 2020-03-30 01:51 | PCM.SN.2 ---
- Free Text/Narrative Note: time out 00:50. epidural done with sterile technique. back prepped with chlorhexidine and draped. 1% lidocaine 3ml given for skin infiltration. l3-l4 level. 17 gauge touhy with verito at 6.5 cm. 01:19 epidural catheter placed. threaded easily without paresthesias. aspiration negative for csf and heme. 01:21 1.5% lidocaine with epinephrine test dose, 3ml which was negative. 01:22 1.5% lidocaine with epinephrine 2 ml bolus given. 0126: epidural catheter secured at 15 cm. 01:36 continuous infusion started. one attempt. patient was able to communicate throughout entire procedure, and she tolerated it well. time 00:40-01:36
[2020-03-30] MEDS ORDERED: Lidocaine 2% 5 ML SDV ONE ×2 (02:03→03:31)
[2020-03-30] MEDS ORDERED: Sodium Chloride 0.9% 10 ML Syringe FLUSH PRN (02:37)
[2020-03-30] MEDS ORDERED: Sodium Chloride 0.9% 2.5 ML Syringe FLUSH PRN (02:37)
[2020-03-30] MEDS ORDERED: Sodium Chloride 0.9% 10 ML SDV IV PRN (02:37)
[2020-03-30] MEDS ORDERED: Morphine PF 10 MG/10 ML SDV ONE (02:38)
[2020-03-30] MEDS ORDERED: ceFAZolin/Dextrose,Iso-Osmotic 2 GM/50 ML Duplex Bag (Premix) IV ONE (02:39)
[2020-03-30] MEDS ORDERED: ceFAZolin 2 GM in Premix Bag 1 BAG IV ONE (02:42)
[2020-03-30] MEDS ORDERED: Oxytocin/0.9 % Sodium Chloride 30 UNIT/500 ML BAG IV SCH (02:45)
[2020-03-30] MEDS ORDERED: Lactated Ringers 1,000 ML IV SCH (02:45)
[2020-03-30] MEDS ORDERED: Ondansetron 4 MG/2 ML SDV ONE (03:26)
[2020-03-30] MEDS ORDERED: Dexamethasone 4 MG/ML 5 ML MDV ONE (03:26)
[2020-03-30] MEDS ORDERED: Oxytocin 10 Units/1 ML SDV ONE (03:36)
[2020-03-30] MEDS ORDERED: Propofol 200 MG/20 ML SDV ONE (03:38)
[2020-03-30] MEDS ORDERED: Ketorolac 30 MG/ML SDV ONE (03:53)
[2020-03-30] MEDS ORDERED: diphenhydrAMINE 50 MG/ML SDV IVPUSH PRN ×2 (04:02→05:06)
[2020-03-30] MEDS ORDERED: Acetaminophen/oxyCODONE 325-5 MG Tab PO PRN ×2 (04:02→05:06)
[2020-03-30] MEDS ORDERED: Naloxone 0.4 MG/ML Syringe IVPUSH PRN (04:02)
[2020-03-30] MEDS ORDERED: Acetaminophen/HYDROcodone 325-5 MG Tab PO PRN (04:02)
--- NOTE | 2020-03-30 05:04 | PCM.POSTAN ---
POST ANESTHESIA ASSESSMENT - MENTAL STATUS Mental Status: Alert, Oriented - VITAL SIGNS Vital Signs: Last Vital Signs Temp 36.1 C 03/30/20 04:40 Pulse 71 03/30/20 05:00 Resp 13 03/30/20 05:00 BP 115/70 03/30/20 05:00 Pulse Ox 99 03/30/20 05:00 - RESPIRATORY Respiratory Status: Respiratory Rate WNL, Airway Patent, O2 Saturation Stable - CARDIOVASCULAR CV Status: Pulse Rate WNL, Blood Pressure Stable - GASTROINTESTINAL GI Status: No Symptoms - PAIN Pain Score: 0 - POST OP HYDRATION Hydration Status: Adequate & Stable - OBSERVATIONS Free Text/Narrative:: The is sitting up in bed, and appears comfortable and in no acute distress. There were no apparent anesthetic complications at this time. Discharge to floor per criteria.
[2020-03-30] MEDS ORDERED: Methylergonovine 0.2 MG/1 ML Amp IM PRN (05:06)
[2020-03-30] MEDS ORDERED: Bisacodyl 10 MG Supp RECTAL PRN (05:06)
[2020-03-30] MEDS ORDERED: Tranexamic Acid 1,000 MG in Sodium Chloride 0.9% 100 ML IV PRN (05:06)
[2020-03-30] MEDS ORDERED: Lanolin 100% Cream 7 GM Tube TOP PRN (05:06)
[2020-03-30] MEDS ORDERED: Misoprostol 200 MCG Tab RECTAL PRN (05:06)
[2020-03-30] MEDS ORDERED: Oxytocin 10 Units/1 ML SDV IM PRN (05:06)
[2020-03-30] MEDS ORDERED: Ondansetron 4 MG/2 ML SDV IVPUSH PRN (05:06)
[2020-03-30] MEDS ORDERED: Ketorolac 30 MG/ML SDV IVPUSH SCH (05:15)
[2020-03-30] MEDS ORDERED: Oxytocin/Lactated Ringers 30 UNIT/500 ML BAG IV SCH (05:15)
--- NOTE | 2020-03-30 05:37 | PCM.OPNOTE ---
- General Post-Op/Procedure Note Date of Surgery/Procedure: 03/30/20 Operative Procedure(s): Primary Lower segment cesearean section Findings: Live female delivered at 334am , 0 9 , weight - 3130g , 3VC [place] breech presentation Pre Op Diagnosis: 29yo @ 40w1. Breech Presentation. Rh negative Post-Op Diagnosis: same Anesthesia Technique: Epidural Primary Surgeon: Brayan Humphreys Anesthesia Provider: Jennifer Galvan Pathology: placenta Fluid Replacement, Intraop: 1,400 Output, Urine Amount: 150 EBL in mLs: 400 Complications: None Condition: Good Free Text/Narrative:: Intake & Output 03/29/20 03/29/20 03/30/20 14:59 22:59 06:59 Intake Total 1000 3900 Output Total 300 Balance 1000 3600
[2020-03-30] MEDS: Docusate Sodium 100 MG Cap PO SCH ×2 (09:15→21:58)
[2020-03-30] MEDS: Ketorolac 30 MG/ML SDV IVPUSH SCH ×3 (09:55→21:59)
[2020-03-31] MEDS: Ketorolac 30 MG/ML SDV IVPUSH SCH (04:28)
[2020-03-31] MEDS: Acetaminophen/oxyCODONE 325-5 MG Tab PO PRN ×2 (08:04→15:49)
[2020-03-31] MEDS: Docusate Sodium 100 MG Cap PO SCH ×2 (08:04→20:01)
--- NOTE | 2020-03-31 08:32 | PCM48HPAN ---
Post Anesthesia Note - EVALUATION WITHIN 48HRS OF ANESTHETIC Vital Signs in Normal Range: Yes Patient Participated in Evaluation: Yes Respiratory Function Stable: Yes Airway Patent: Yes Cardiovascular Function Stable: Yes Hydration Status Stable: Yes (Taking PO well without N/V) Pain Control Satisfactory: Yes (Reports satisfactory pain control) Nausea and Vomiting Control Satisfactory: Yes Mental Status Recovered: Yes Vital Signs: Last Vital Signs Temp 36.9 C 03/31/20 08:00 Pulse 75 03/31/20 08:00 Resp 16 03/31/20 08:00 BP 127/75 03/31/20 08:00 Pulse Ox 98 03/31/20 08:00 - COMMENTS/OBSERVATIONS Free Text/Narrative:: Ambulating well without assistance, reports full return of strength and sensation to BLE. Okay to discharge from anesthesia service.
--- NOTE | 2020-03-31 08:42 | PCM.PNPP ---
- General Info Date of Service: 03/31/20 Subjective Update: Denies dizziness, fevers/chills Functional Status: Reports: Pain Controlled, Tolerating Diet, Ambulating, Urinating - Review of Systems General: Reports: No Symptoms HEENT: Reports: No Symptoms Pulmonary: Reports: No Symptoms Cardiovascular: Reports: No Symptoms Gastrointestinal: Reports: No Symptoms Genitourinary: Reports: No Symptoms Musculoskeletal: Reports: No Symptoms Skin: Reports: No Symptoms Neurological: Reports: No Symptoms Psychiatric: Reports: No Symptoms - Patient Data Vital Signs - Most Recent: Last Vital Signs Temp 36.9 C 03/31/20 08:00 Pulse 75 03/31/20 08:00 Resp 16 03/31/20 08:00 BP 127/75 03/31/20 08:00 Pulse Ox 98 03/31/20 08:00 Weight - Most Recent: 104.78 kg I&O - Last 24 Hours: Intake & Output 03/30/20 03/31/20 03/31/20 22:59 06:59 14:59 Intake Total 1000 Output Total 215 1850 900 Balance 785 -1850 -900 Lab Results - Last 24 Hours: Laboratory Results - last 24 hr 03/31/20 Range/Units 04:30 Hgb 10.2 L (12.0-16.0) g/dL Hct 31.0 L (36.0-46.0) % Med Orders - Current: Current Medications Bisacodyl (Dulcolax) 10 mg RECTAL ONETIME PRN PRN Reason: Constipation Diphenhydramine HCl (Benadryl) 25 mg IVPUSH Q6H PRN PRN Reason: Itching or Nausea Last Admin: 03/31/20 00:10 Dose: 25 mg Documented by: Docusate Sodium (Colace) 100 mg PO BID CHRISSY Last Admin: 03/31/20 08:04 Dose: 100 mg Documented by: Emollient Ointment (Lansinoh Hpa) 0 gm TOP ASDIRECTED PRN PRN Reason: Sore Nipples Lactated Ringer's (Ringers, Lactated) 1,000 mls @ 500 mls/hr IV BOLUS [facility] Oxytocin/Sodium Chloride (Oxytocin 30 Unit/500 Ml-Ns) 30 unit in 500 mls @ 250 mls/hr IV TITRATE CHRISSY Lactated Ringer's (Ringers, Lactated) 1,000 mls @ 125 mls/hr IV ASDIRECTED CHRISSY Last Infusion: 03/30/20 21:58 Dose: Infused Documented by: Oxytocin/Lactated Ringer's (Pitocin In Lr 30 Units/500 Ml) 30 unit in 500 mls @ 2 mls/hr IV TITRATE CHRISSY; Protocol Tranexamic Acid 1,000 mg/ (Sodium Chloride) 110 mls @ 660 mls/hr IV ONETIME PRN PRN Reason: Bleeding Ibuprofen (Motrin) 800 mg PO Q8H PRN PRN Reason: mild pain or fever Methylergonovine Maleate (Methergine) 0.2 mg IM ONETIME PRN PRN Reason: Excessive Vaginal Bleeding Misoprostol (Cytotec) 1,000 mcg RECTAL ONETIME PRN PRN Reason: excessive bleeding Ondansetron HCl (Zofran) 4 mg IVPUSH Q4H PRN PRN Reason: Nausea/Vomiting Last Admin: 03/30/20 09:20 Dose: 4 mg Documented by: Oxycodone/Acetaminophen (Percocet 325-5 Mg) 1 tab PO Q4H PRN PRN Reason: Pain (moderate 4-6) Last Admin: 03/31/20 08:04 Dose: 1 tab Documented by: Oxycodone/Acetaminophen (Percocet 325-5 Mg) 2 tab PO Q4H PRN PRN Reason: Pain (moderate 4-6) Oxytocin (Pitocin) 10 unit IM ASDIRECTED PRN PRN Reason: Excessive Vaginal Bleeding Sodium Chloride (Saline Flush) 10 ml FLUSH ASDIRECTED PRN PRN Reason: Keep Vein Open Sodium Chloride (Saline Flush) 2.5 ml FLUSH ASDIRECTED PRN PRN Reason: Keep Vein Open Sodium Chloride (Normal Saline) 10 ml IV ASDIRECTED PRN PRN Reason: IV Use Discontinued Medications Hydrocodone Bitart/Acetaminophen ([place] 325-5 Mg) 2 tab PO Q6H PRN PRN Reason: Pain (moderate 4-6) Butorphanol Tartrate (Stadol) 1 mg IVPUSH Q1H PRN PRN Reason: Pain Last Admin: 03/29/20 22:54 Dose: 1 mg Documented by: Carboprost Tromethamine (Hemabate Ds) 250 mcg IM ASDIRECTED PRN PRN Reason: Post Hemorrhage Cefazolin Sodium/Dextrose (Ancef) Confirm Administered Dose 2 gm IV .STK-MED ONE Stop: 03/30/20 02:40 Dexamethasone (Dexamethasone) Confirm Administered Dose 20 mg .ROUTE .ST-MED ONE Stop: 03/30/20 03:27 Diphenhydramine HCl (Benadryl) 25 mg IVPUSH Q4H PRN PRN Reason: Itching Stop: 03/31/20 04:02 Oxytocin/Sodium Chloride (Oxytocin 30 Unit/500 Ml-Ns) 30 unit in 500 mls @ 2 mls/hr IV TITRATE CHRISSY; Protocol Lactated Ringer's (Ringers, Lactated) 1,000 mls @ 150 mls/hr IV ASDIRECTED [facility] Last Admin: 03/30/20 02:05 Dose: 250 mls/hr Documented by: Tranexamic Acid 1,000 mg/ (Sodium Chloride) 110 mls @ 660 mls/hr IV ONETIME PRN PRN Reason: Bleeding Ropivacaine (Naropin 0.2%) Confirm Administered Dose 100 mls @ as directed .ROUTE .[facility]-MED ONE Stop: 03/30/20 00:29 Cefazolin Sodium/Dextrose 2 gm (/ Premix) 50 mls @ 100 mls/hr IV ONETIME ONE Stop: 03/30/20 03:11 Ketorolac Tromethamine (Toradol) Confirm Administered Dose 30 mg .ROUTE .STK-MED ONE Stop: 03/30/20 03:54 Ketorolac Tromethamine (Toradol) 30 mg IVPUSH Q6H [facility] Stop: 03/31/20 05:16 Ketorolac Tromethamine (Toradol) 30 mg IVPUSH Q6H [facility] Stop: 03/31/20 04:16 Last Admin: 03/31/20 04:28 Dose: 30 mg Documented by: Lidocaine (Xylocaine-Mpf 2%) Confirm Administered Dose 10 ml .ROUTE .STK-MED ONE Stop: 03/30/20 02:04 Lidocaine (Xylocaine-Mpf 2%) Confirm Administered Dose 5 ml .ROUTE .[facility]-MED ONE Stop: 03/30/20 03:32 Lidocaine HCl (Xylocaine 1%) 50 ml INJECT ONETIME PRN PRN Reason: Laceration repair Methylergonovine Maleate (Methergine) 0.2 mg IM ASDIRECTED PRN PRN Reason: Post Hemorrhage Misoprostol (Cytotec) 25 mcg VAG ONETIME PRN PRN Reason: Cervical Ripening Last Admin: 03/29/20 17:50 Dose: 25 mcg Documented by: Misoprostol (Cytotec) 25 mcg VAG Q4H PRN PRN Reason: Cervical Ripening Misoprostol (Cytotec) 200 mcg PO ONETIME PRN PRN Reason: Post Hemorrhage Morphine Sulfate (Duramorph Pf) Confirm Administered Dose 10 mg .ROUTE .STK-MED ONE Stop: 03/30/20 02:39 Naloxone HCl (Narcan) 0.1 mg IVPUSH ONETIME PRN PRN Reason: Respiratory Depression Stop: 03/31/20 04:02 Ondansetron HCl (Zofran) Confirm Administered Dose 4 mg .ROUTE .STK-MED ONE Stop: 03/30/20 03:27 Oxycodone/Acetaminophen (Percocet 325-5 Mg) 1 tab PO ONETIME PRN PRN Reason: Pain (mild 1-3) Oxytocin (Pitocin) Confirm Administered Dose 30 unit .ROUTE .STK-MED ONE Stop: 03/30/20 03:37 Propofol (Diprivan 20 Ml) Confirm Administered Dose 200 mg .ROUTE .STK-MED ONE Stop: 03/30/20 03:39 Sodium Chloride (Saline Flush) 10 ml FLUSH ASDIRECTED PRN PRN Reason: Keep Vein Open Sodium Chloride (Saline Flush) 2.5 ml FLUSH ASDIRECTED PRN PRN Reason: Keep Vein Open Sodium Chloride (Normal Saline) 10 ml IV ASDIRECTED PRN PRN Reason: IV Use Sterile Water (Sterile Water For Irrigation) 1,000 ml IRR ASDIRECTED PRN PRN Reason: delivery Terbutaline Sulfate (Brethine) 0.25 mg SUBCUT ASDIRECTED PRN PRN Reason: Tacysystole - Interaction Disposition, : [place] in Room with Family Infant Interaction: Holding Infant Feeding: Breastfed ; Nursed Well Support Person: - Recovery Exam Fundal Tone: Firm Fundal Level: 2 Fingerbreadths Below Umbilicus Fundal Placement: Midline Lochia Amount: Scant Lochia Color: Rubra/Red Bladder Status: Voiding Urinary Elimination: Voided Other Urinary Elimination, : [place] catheter removed at 0435 - Exam General: Alert, Oriented Neck: Supple Lungs: Normal Respiratory Effort GI/Abdominal Exam: Soft, Non-Tender Extremities: Non-Tender, No Pedal Edema Skin: Warm, Dry, Intact Wound/Incisions: Dressing Dry and Intact Neurological: No New Focal Deficit Psy/Mental Status: Alert, Normal Affect, Normal Mood - Problem List & Annotations (1) S/P primary low transverse SNOMED Code(s): 918856759, [id number], 698860080, 960020706, [id number] Code(s): Z98.891 - HISTORY OF UTERINE SCAR FROM PREVIOUS SURGERY Status: Acute Current Visit: Yes - Problem List Review Problem List Initiated/Reviewed/Updated: Yes - Assessment Assessment:: 29yo P1 s/p 1LTCS for breech malpresentation in labor, POD#1 - Plan Plan:: Patient has voided since milton removed. Pain controlled. Ambulating without dizziness. Encourage ambulation today, work on pain control with increased activity. Rhogam today. Plan to discharge home today.
--- NOTE | 2020-03-31 09:39 | OR ---
SURGEON: HODA PENNINGTON DATE OF PROCEDURE: 03/31/2020 PREOPERATIVE DIAGNOSES: A 29-year-old G2, P0-0-1-0 at 40 weeks 1 day with breech presentation, Rh negative. POSTOPERATIVE DIAGNOSES: A 29-year-old G2, P0-0-1-0 at 40 weeks 1 day with breech presentation, Rh negative. PROCEDURE: Primary lower segment section. ANAESTHESIA: Epidural ESTIMATED BLOOD LOSS: 400. IV FLUIDS: 1400. URINE OUTPUT: 115. COMPLICATIONS: None NOTES AND FINDINGS: Live male delivered at 3:34 a.m. score was 0 and 9, weight is 3120 g. She had a small cut on the gluteal region to the right. BRIEF HISTORY: She is a 29-year-old G2, P0-0-1-0 at 40 weeks and 1 day, was admitted for induction of labor. She received Cytotec. She was examined and by the nurse who examined and noted to be Breech. I confirmed breech presentation via ultrasound and VE .At this point, patient was consented for a primary section. She was explained the risks, benefits, and alternatives and she decided to proceed. DESCRIPTION OF PROCEDURE: The patient was taken to the operating room where the epidural anesthesia was topped up. She was prepared and draped in the dorsal supine position with a leftward tilt. A Pfannenstiel skin incision was made with a scalpel and carried down to the fascia with the Bovie. The fascia was incised and extended upwards and laterally. The fascia was from the rectus muscle superiorly and inferiorly. The abdomen was entered in bluntly. The Remington retractor was placed in to expose the lower uterine segment. The bladder flap was created. A lower uterine incision was made and the fetus was noted to be breech presentation, was delivered via breech maneveurs. Then the cord was clamped and cut. was handed over to the senior policy associate. The cord blood gases were obtained. The placenta was delivered by manual massage of the uterine fundus. The placenta was closed in 2 layers, first layer with 0 Vicryl, second layer with 0 Vicryl. The peritoneum was closed with 2-0 Vicryl. The fascia was closed with plain gut. The skin was closed with 3-0 Monocryl on a Oswaldo needle. Raffy dressing was placed. The patient tolerated the procedure well. All instrument and pad counts were correct x2. JANET GERARDO /[id number] MTDD
[2020-03-31] MEDS ORDERED: Ibuprofen 800 MG Tab PO PRN (11:15)
[2020-04-01] MEDS: Acetaminophen/oxyCODONE 325-5 MG Tab PO PRN ×2 (01:28→08:51)
[2020-04-01] MEDS: Docusate Sodium 100 MG Cap PO SCH (08:50)
--- NOTE | 2020-04-01 08:56 | PCM.PNPP ---
- General Info Date of Service: 04/01/20 Subjective Update: Patient doing well. Baby latching well, but has pumped and bottle-fed when she feels baby getting frustrated. Minimal lochia. Functional Status: Reports: Pain Controlled, Tolerating Diet, Urinating - Review of Systems General: Reports: No Symptoms HEENT: Reports: No Symptoms Pulmonary: Reports: No Symptoms Cardiovascular: Reports: No Symptoms Gastrointestinal: Reports: No Symptoms Genitourinary: Reports: No Symptoms Musculoskeletal: Reports: No Symptoms Skin: Reports: No Symptoms Neurological: Reports: No Symptoms Psychiatric: Reports: No Symptoms - Patient Data Vital Signs - Most Recent: Last Vital Signs Temp 36.3 C 04/01/20 04:00 Pulse 79 04/01/20 04:00 Resp 16 04/01/20 04:00 BP 117/84 04/01/20 04:00 Pulse Ox 97 04/01/20 04:00 Weight - Most Recent: 104.78 kg I&O - Last 24 Hours: Intake & Output 03/31/20 04/01/20 04/01/20 22:59 06:59 14:59 Intake Total 2 Balance 2 Lab Results - Last 24 Hours: Laboratory Results - last 24 hr 03/30/20 Range/Units 04:43 Screen NEGATIVE (NEGATIVE) RhIG Candidate? YES Rhogam Indicated YES, BABY RH POS H Med Orders - Current: Current Medications Bisacodyl (Dulcolax) 10 mg RECTAL ONETIME PRN PRN Reason: Constipation Diphenhydramine HCl (Benadryl) 25 mg IVPUSH Q6H PRN PRN Reason: Itching or Nausea Last Admin: 03/31/20 00:10 Dose: 25 mg Documented by: Docusate Sodium (Colace) 100 mg PO BID [facility] Last Admin: 03/31/20 20:01 Dose: 100 mg Documented by: Emollient Ointment (Lansinoh Hpa) 0 gm TOP ASDIRECTED PRN PRN Reason: Sore Nipples Lactated Ringer's (Ringers, Lactated) 1,000 mls @ 500 mls/hr IV BOLUS [facility] Oxytocin/Sodium Chloride (Oxytocin 30 Unit/500 Ml-Ns) 30 unit in 500 mls @ 250 mls/hr IV TITRATE CHRISSY Lactated Ringer's (Ringers, Lactated) 1,000 mls @ 125 mls/hr IV ASDIRECTED CHRISSY Last Infusion: 03/30/20 21:58 Dose: Infused Documented by: Oxytocin/Lactated Ringer's (Pitocin In Lr 30 Units/500 Ml) 30 unit in 500 mls @ 2 mls/hr IV TITRATE CHRISSY; Protocol Tranexamic Acid 1,000 mg/ (Sodium Chloride) 110 mls @ 660 mls/hr IV ONETIME PRN PRN Reason: Bleeding Ibuprofen (Motrin) 800 mg PO Q8H PRN PRN Reason: mild pain or fever Last Admin: 03/31/20 11:13 Dose: 800 mg Documented by: Methylergonovine Maleate (Methergine) 0.2 mg IM ONETIME PRN PRN Reason: Excessive Vaginal Bleeding Misoprostol (Cytotec) 1,000 mcg RECTAL ONETIME PRN PRN Reason: excessive bleeding Ondansetron HCl (Zofran) 4 mg IVPUSH Q4H PRN PRN Reason: Nausea/Vomiting Last Admin: 03/30/20 09:20 Dose: 4 mg Documented by: Oxycodone/Acetaminophen (Percocet 325-5 Mg) 1 tab PO Q4H PRN PRN Reason: Pain (moderate 4-6) Last Admin: 04/01/20 01:28 Dose: 1 tab Documented by: Oxycodone/Acetaminophen (Percocet 325-5 Mg) 2 tab PO Q4H PRN PRN Reason: Pain (moderate 4-6) Last Admin: 03/31/20 19:58 Dose: 2 tab Documented by: Oxytocin (Pitocin) 10 unit IM ASDIRECTED PRN PRN Reason: Excessive Vaginal Bleeding Sodium Chloride (Saline Flush) 10 ml FLUSH ASDIRECTED PRN PRN Reason: Keep Vein Open Sodium Chloride (Saline Flush) 2.5 ml FLUSH ASDIRECTED PRN PRN Reason: Keep Vein Open Sodium Chloride (Normal Saline) 10 ml IV ASDIRECTED PRN PRN Reason: IV Use Discontinued Medications Hydrocodone Bitart/Acetaminophen (Duncan 325-5 Mg) 2 tab PO Q6H PRN PRN Reason: Pain (moderate 4-6) Butorphanol Tartrate (Stadol) 1 mg IVPUSH Q1H PRN PRN Reason: Pain Last Admin: 03/29/20 22:54 Dose: 1 mg Documented by: Carboprost Tromethamine (Hemabate Ds) 250 mcg IM ASDIRECTED PRN PRN Reason: Post Hemorrhage Cefazolin Sodium/Dextrose (Ancef) Confirm Administered Dose 2 gm IV .STK-MED ONE Stop: 03/30/20 02:40 Dexamethasone (Dexamethasone) Confirm Administered Dose 20 mg .ROUTE .STK-MED ONE Stop: 03/30/20 03:27 Diphenhydramine HCl (Benadryl) 25 mg IVPUSH Q4H PRN PRN Reason: Itching Stop: 03/31/20 04:02 Oxytocin/Sodium Chloride (Oxytocin 30 Unit/500 Ml-Ns) 30 unit in 500 mls @ 2 mls/hr IV TITRATE CHRISSY; Protocol Lactated Ringer's (Ringers, Lactated) 1,000 mls @ 150 mls/hr IV ASDIRECTED [facility] Last Admin: 03/30/20 02:05 Dose: 250 mls/hr Documented by: Tranexamic Acid 1,000 mg/ (Sodium Chloride) 110 mls @ 660 mls/hr IV ONETIME PRN PRN Reason: Bleeding Ropivacaine (Naropin 0.2%) Confirm Administered Dose 100 mls @ as directed .ROUTE .STK-MED ONE Stop: 03/30/20 00:29 Cefazolin Sodium/Dextrose 2 gm (/ Premix) 50 mls @ 100 mls/hr IV ONETIME ONE Stop: 03/30/20 03:11 Ketorolac Tromethamine (Toradol) Confirm Administered Dose 30 mg .ROUTE .STK-MED ONE Stop: 03/30/20 03:54 Ketorolac Tromethamine (Toradol) 30 mg IVPUSH Q6H [facility] Stop: 03/31/20 05:16 Ketorolac Tromethamine (Toradol) 30 mg IVPUSH Q6H [facility] Stop: 03/31/20 04:16 Last Admin: 03/31/20 04:28 Dose: 30 mg Documented by: Lidocaine (Xylocaine-Mpf 2%) Confirm Administered Dose 10 ml .ROUTE .STK-MED ONE Stop: 03/30/20 02:04 Lidocaine (Xylocaine-Mpf 2%) Confirm Administered Dose 5 ml .ROUTE .STK-MED ONE Stop: 03/30/20 03:32 Lidocaine HCl (Xylocaine 1%) 50 ml INJECT ONETIME PRN PRN Reason: Laceration repair Methylergonovine Maleate (Methergine) 0.2 mg IM ASDIRECTED PRN PRN Reason: Post Hemorrhage Misoprostol (Cytotec) 25 mcg VAG ONETIME PRN PRN Reason: Cervical Ripening Last Admin: 03/29/20 17:50 Dose: 25 mcg Documented by: Misoprostol (Cytotec) 25 mcg VAG Q4H PRN PRN Reason: Cervical Ripening Misoprostol (Cytotec) 200 mcg PO ONETIME PRN PRN Reason: Post Hemorrhage Morphine Sulfate (Duramorph Pf) Confirm Administered Dose 10 mg .ROUTE .STK-MED ONE Stop: 03/30/20 02:39 Naloxone HCl (Narcan) 0.1 mg IVPUSH ONETIME PRN PRN Reason: Respiratory Depression Stop: 03/31/20 04:02 Ondansetron HCl (Zofran) Confirm Administered Dose 4 mg .ROUTE .STK-MED ONE Stop: 03/30/20 03:27 Oxycodone/Acetaminophen (Percocet 325-5 Mg) 1 tab PO ONETIME PRN PRN Reason: Pain (mild 1-3) Oxytocin (Pitocin) Confirm Administered Dose 30 unit .ROUTE .STK-MED ONE Stop: 03/30/20 03:37 Propofol (Diprivan 20 Ml) Confirm Administered Dose 200 mg .ROUTE .STK-MED ONE Stop: 03/30/20 03:39 Sodium Chloride (Saline Flush) 10 ml FLUSH ASDIRECTED PRN PRN Reason: Keep Vein Open Sodium Chloride (Saline Flush) 2.5 ml FLUSH ASDIRECTED PRN PRN Reason: Keep Vein Open Sodium Chloride (Normal Saline) 10 ml IV ASDIRECTED PRN PRN Reason: IV Use Sterile Water (Sterile Water For Irrigation) 1,000 ml IRR ASDIRECTED PRN PRN Reason: delivery Terbutaline Sulfate (Brethine) 0.25 mg SUBCUT ASDIRECTED PRN PRN Reason: Tacysystole - Infant Interaction Disposition, : in Room with Family Interaction: Holding Feeding: Bottle Fed , Breastfed Infant; Nursed Well Support Person: - Recovery Exam Fundal Tone: Firm Fundal Level: 2 Fingerbreadths Below Umbilicus Fundal Placement: Midline Lochia Amount: Scant Lochia Color: Rubra/Red Bladder Status: Voiding Urinary Elimination: Voided Other Urinary Elimination, : Goodman catheter removed at 0435 - Exam General: Alert, Oriented Neck: Supple Lungs: Normal Respiratory Effort GI/Abdominal Exam: Soft, Non-Tender, No Distention Extremities: No Pedal Edema Skin: Warm, Dry, Intact Wound/Incisions: Dressing Dry and Intact Neurological: No New Focal Deficit Psy/Mental Status: Alert, Normal Affect, Normal Mood - Problem List & Annotations (1) S/P primary low transverse SNOMED Code(s): 694757173, [id number], [id number], [id number], [id number] Code(s): Z98.891 - HISTORY OF UTERINE SCAR FROM PREVIOUS SURGERY Status: Acute Current Visit: Yes - Problem List Review Problem List Initiated/Reviewed/Updated: Yes - My Orders Last 24 Hours: My Active Orders 04/01/20 08:49 Ready for Discharge [RC] PER UNIT ROUTINE - Assessment Assessment:: 29yo s/p 1LTCS for breech malpresentation in labor, POD#2 - Plan Plan:: Discharge home today. Reviewed discharge precautions and restrictions. All questions answered. Breast pump prescription sent to [facility].
== END 2020-04-01 13:56 | disposition home or self-care (01) | DRG 788 ==
LOC: MW.OB 16:26 → MW.OBCHECK 16:26 → MW.OB 03-30 02:36 → OBSVTOIN 03-30 02:37 → MW.OB 03-30 09:35
PROVIDERS: ADMIT Obstetrics & Gynecology; ATTEND Obstetrics & Gynecology
PROC: 10D00Z1 Extraction of Products of Conception, Low, Open Approach (ICD-10-PCS; principal; 2020-03-30)
PROC: 3E0P7VZ Introduction of Hormone into Female Reproductive, Via Natural or Artificial Opening (ICD-10-PCS; 2020-03-30)
PROC: 3E0R3BZ Introduction of Anesthetic Agent into Spinal Canal, Percutaneous Approach (ICD-10-PCS; 2020-03-30)
PROC: 00HU33Z Insertion of Infusion Device into Spinal Canal, Percutaneous Approach (ICD-10-PCS; 2020-03-30)
DX: O48.0 Post-term pregnancy (principal); Z37.0 Single live birth; Z3A.40 40 weeks gestation of pregnancy; O99.214 Obesity complicating childbirth; E66.9 Obesity, unspecified; Z90.49 Acquired absence of other specified parts of digestive tract; O32.8XX0 Maternal care for other malpresentation of fetus, not applicable or unspecified; Z20.822 Contact with and (suspected) exposure to COVID-19
CPT/HCPCS: 01967; 36415; 36430; 59025; 82803; 85014; 85018; 85027; 85460; 86592; 86850; 86900; 86901; A9270-GY; J0595; J0690; J1100; J1200; J1885; J2001; J2270; J2405; J2590; J2704; J2792; J2795; J7120; U0002